=== PATIENT | male | born 1945 | race African-American/Black ===

== ENCOUNTER 2022-03-16 08:04 | Inpatient (IN) ==
[2022-03-16 08:31] LABS: INR 1.1; PT Patient Result 12.5 SECS (10.1-12.1)
[2022-03-16] MEDS ORDERED: METOPROLOL TARTRATE 5 MG/5 ML VIAL IV ONE ×3 (08:34→20:13)
[2022-03-16] MEDS ORDERED: BUPIVACAINE MPF 0.25% 10 ML VIAL ONE (09:12)
[2022-03-16] MEDS ORDERED: LIDOCAINE 2%/EPI 20 ML VIAL ONE (09:12)
[2022-03-16] MEDS ORDERED: HEPARIN 5,000 UNIT/1 ML VIAL ONE (09:12)
[2022-03-16] MEDS ORDERED: TISSUE ADHESIVE 1 EACH APPLICATOR TOP ONE (09:12)
[2022-03-16] MEDS ORDERED: ROCURONIUM 50 MG/5 ML VIAL IV ONE (09:14)
[2022-03-16] MEDS ORDERED: MIDAZOLAM 2 MG/2 ML VIAL ONE ×2 (09:14→11:05)
[2022-03-16] MEDS ORDERED: SEVOFLURANE 1 UNIT/15 MINUTE INH ONE ×3 (09:14→11:31)
[2022-03-16] MEDS ORDERED: SODIUM CHLORIDE 0.9% 100 ML IV ONE (09:51)
[2022-03-16] MEDS ORDERED: PHENYLEPHRINE 10 MG/1 ML VIAL IV ONE (09:51)
[2022-03-16] MEDS ORDERED: PHENYLEPHRINE 1 MG/10 ML SYRINGE IV ONE (09:51)
[2022-03-16] MEDS ORDERED: ceFAZolin 1,000 MG VIAL ONE (10:04)
[2022-03-16] MEDS ORDERED: fentaNYL 100 MCG/2 ML VIAL ONE (10:27)
[2022-03-16] MEDS ORDERED: ALBUTEROL 2.5 MG/3 ML NEB RESP TX PRN (12:36)
[2022-03-16] MEDS ORDERED: ACETAMINOPHEN 325 MG TABLET PO PRN (12:36)
[2022-03-16] MEDS ORDERED: DILTIAZEM 25 MG/5 ML VIAL IV ONE (12:39)
[2022-03-16] MEDS ORDERED: DEXTROSE 10% 250 ML BAG IV PRN (12:42)
[2022-03-16] MEDS ORDERED: fentaNYL INJ 1,250 MCG in SODIUM CHLORIDE 0.9% 225 ML IV PRN (12:57)
[2022-03-16] MEDS ORDERED: MIDAZOLAM 100 MG in SODIUM CHLORIDE 0.9% 80 ML IV PRN (12:57)
[2022-03-16] MEDS ORDERED: VANCOMYCIN INJ 750 MG in SODIUM CHLORIDE 0.9% 250 ML IV PRN (13:55)
[2022-03-16] MEDS ORDERED: MORPHINE 2 MG/1 ML SYRINGE ONE (13:59)
[2022-03-16] MEDS ORDERED: MORPHINE 2 MG/1 ML SYRINGE IV PRN (14:00)
[2022-03-16] MEDS: PANTOPRAZOLE 40 MG VIAL IV SCH (14:10)
[2022-03-16] MEDS: methylPREDNISolone SOD SUC 40 MG/1 ML VIAL IV SCH ×2 (14:12→21:30)
[2022-03-16] MEDS: DILTIAZEM INJ 100 MG in SODIUM CHLORIDE 0.9% 100 ML IV SCH (14:17)
[2022-03-16] MEDS: ALPRAZolam 0.25 MG TABLET PO SCH ×2 (16:17→20:04)
[2022-03-16] MEDS: INSULIN LISPRO 100 UNIT/ML SUBCUT SCH ×2 (18:51→23:37)
[2022-03-16] MEDS: ALBUTEROL/IPRATROPIUM 3 ML NEB RESP TX SCH (19:56)
[2022-03-16] MEDS: METOPROLOL TARTRATE 25 MG TABLET PO SCH (20:04)
[2022-03-16] MEDS ORDERED: LORazepam 2 MG/1 ML VIAL IV ONE (20:13)
[2022-03-17] MEDS: ALBUTEROL/IPRATROPIUM 3 ML NEB RESP TX SCH ×3 (00:55→13:45)
[2022-03-17] MEDS: DILTIAZEM INJ 100 MG in SODIUM CHLORIDE 0.9% 100 ML IV SCH ×2 (01:48→12:53)
[2022-03-17 03:48] LABS: Phosphorous 4.6 MG/DL (2.5-4.9)
[2022-03-17 04:52] LABS: Arterial Base Excess iSTAT -4 MMOL/L (-2.5-2.5); Arterial Bicarbonate iSTAT 22.2 MMOL/L (20-26); Arterial O2 Saturation iSTAT 99 % (95-100); Arterial PCO2 iSTAT 44 MM HG (35-48); Arterial PO2 iSTAT 134 MM HG (80-95); Arterial Total CO2 iSTAT 24 MMO/L (23-27); Arterial pH iSTAT 7.309 (7.35-7.45)
[2022-03-17 06:09] LABS: Hematocrit 28.3 VOL% (42.0-52.0); Hemoglobin 8.5 GM/DL (14.0-18.0); Immature Granulocytes % 1.2 %; Immature Granulocytes Absolute 0.07 #; Lymphocytes # 0.1 10*3/uL (1.4-4.0); Lymphocytes % 1.3 % (21.2-54.2); Mean Corpuscular Volume 97.9 FL (87-102); Mean Platelet Volume 11.5 FL (9.6-12.0); Monocytes # 0.3 10*3/uL (0.11-0.8); Monocytes % 4.5 % (1.7-12.7); Platelet Count 145 T/CUMM (130-400); Red Blood Count 2.89 MC/CUMM (3.8-5.5); White Blood Count 6.1 T/CUMM (4-12)
[2022-03-17] MEDS: methylPREDNISolone SOD SUC 40 MG/1 ML VIAL IV SCH ×2 (06:13→13:46)
[2022-03-17] MEDS: INSULIN LISPRO 100 UNIT/ML SUBCUT SCH ×2 (06:13→11:39)
[2022-03-17 06:20] LABS: Calcium 8.6 MG/DL (8.5-10.1); Potassium 4.3 MMOL/L (3.5-5.1)
[2022-03-17 07:03] LABS: Lymphocytes 4 % (20-55); Total Cells Counted 100
[2022-03-17 07:04] LABS: Platelet Estimate Adequate
[2022-03-17] MEDS ORDERED: DILTIAZEM 90 MG TABLET PO SCH (08:00)
[2022-03-17] MEDS ORDERED: DILTIAZEM 25 MG/5 ML VIAL IV ONE ×2 (08:30→09:43)
[2022-03-17 08:46] VITALS: BP 143/63
[2022-03-17] MEDS ORDERED: ROFLUMILAST 500 MCG TABLET PO SCH (09:00)
[2022-03-17] MEDS ORDERED: INSULIN GLARGINE 100 UNIT/ML SUBCUT SCH (09:00)
[2022-03-17] MEDS ORDERED: LORazepam 2 MG/1 ML VIAL IV PRN (09:15)
[2022-03-17] MEDS: ALPRAZolam 0.25 MG TABLET PO SCH (09:33)
[2022-03-17] MEDS: METOPROLOL TARTRATE 25 MG TABLET PO SCH (09:33)
[2022-03-17] MEDS ORDERED: DILTIAZEM 90 MG TABLET PO ONE (09:44)
[2022-03-17] MEDS ORDERED: VANCOMYCIN INJ 750 MG in SODIUM CHLORIDE 0.9% 250 ML IV ONE (12:00)
[2022-03-17] MEDS: PANTOPRAZOLE 40 MG VIAL IV SCH (13:06)
== END 2022-03-17 14:50 | DRG 4 ==
LOC: N.OR 08:04 → N.CVR 11:18 → N.ICU 19:58
PROVIDERS: ADMIT Student in an Organized Health Care Education/Training Program; ATTEND Student in an Organized Health Care Education/Training Program